=== PATIENT | female | born 1975 | race Caucasian/White ===

== ENCOUNTER 2023-05-20 13:13 | Outpatient (CLI) | payer OTHER | END 2023-05-20 13:14 | disposition home or self-care (01) | LOC: MADRAD 13:13 | PROVIDERS: ATTEND Registered Nurse | DX: M54.50 Low back pain, unspecified (principal); M47.816 Spondylosis without myelopathy or radiculopathy, lumbar region | CPT/HCPCS: 72072; 72110 ==